=== PATIENT | male | born 1980 | race Caucasian/White ===

== ENCOUNTER 2024-01-25 08:42 | Outpatient (CLI) | payer BC, SELFPAY ==
--- NOTE | 2024-02-04 18:20 | WPDSLEEPSTUD ---
Sleep Study Date of Study: 01/25/24 Ordering Provider: Emilia Leigh MD Interpreting Physician: Jocelyn Boss MD Sleep Study Type: Polysomnogram Height: 1.83 m Weight: 86.183 kg Body Mass Index: 25.7 Neck Circumference (inches): 14.5 [place]: 14 Reason for Sleep Study Hypersomnolence Sleep History Stanley Schneider is a 43-year-old man with excessive daytime sleepiness. He occasionally awakens from sleep feeling short of breath. He rarely wakes at night with heartburn, belching or coughing.??He constantly snores, and constantly snores loudly enough that others complain. He occasionally has trouble sleeping when he has a cold. He rarely wakes up gasping for breath during the night. He frequently has breathing problems at night witnessed by others. He occasionally sweats excessively at night. He rarely notices his heart pounding or beating irregularly during the night. He rarely falls asleep during the day. He frequently falls asleep involuntarily, occasionally falls asleep while driving. He never experiences loss of muscle tone with strong emotion. He never has daytime difficulty at work due to excessive sleepiness, he is a mortgage dba manager. He never feels paralyzed on waking or falling asleep. He rarely experiences vivid dreams upon waking or falling asleep. He never feels afraid of going to sleep. He rarely has nightmares. He rarely recalls his dreams. He frequently has thoughts racing through his mind. He never feels sad or depressed. He rarely feels anxiety. He occasionally notices parts of his body jerk. He occasionally kicks during the night. He occasionally feels crawling or aching feelings in his legs. He occasionally feels leg pain at night. He rarely has morning jaw pain, occasionally grinds his teeth at night. He rarely feels bothered by pain during the day, rarely awakened by pain during the night. He frequently wakes up feeling stiff in the morning, and he wakes feeling sore or achy. He occasionally awakens with pain in his neck, spine, or joints. Normal bedtime is between 10:30 p.m. and 11:00 p.m., falling asleep within 10 minutes to 15 minutes, waking 5-6 times at night, checking the clock while awake. He stays awake a few minutes before returning to sleep. His normal wake time is 5:25 a.m.. On weekends, bedtime is also between 10:30 p.m. and 11:00 p.m., and he wakes by 7:00 a.m.. He does not take naps in the afternoon or evening. A short nap lasting 10-15 minutes is not refreshing. He is usually drowsy for an hour after waking. He feels better in the afternoon compared to other times of day. Habits:??Tobacco: Never smoker Caffeine: 2-3 cups of coffee per day Alcohol: Once or twice a week Recreational substances: none PMFSH Past Medical History Medical History (Updated 02/06/24 @ 14:16 by Jocelyn Boss MD) GERD without esophagitis Seasonal allergies Surgical History Surgical History History of placement of ear tubes (~1982) History of tonsillectomy (~1983) Family History Family History Grandparent , 72 age of Heart disease Carcinoma of colon Social History Social History Smoking status: Never smoker Alcohol intake: current Substance use: never Lack of Transportation: No Lack of Food: Never True Current Housing: I Have Housing Concerned About Future Housing: No Difficulty Paying Gas/Electric Bills: No Difficulty Paying for Meds: No Currently Unemployed: No Education: Bachelor's Degree Difficulty w/ Childcare or Family Care: No Living arrangements: with family Occupation/Education: occupation Gender identity (if verbalized by the patient): Male Sexual Orientation (if Verbalized by the Patient): Straight or Heterosexual Spiritual care
[2024-02-06 14:39] VITALS: BMI 25.7
== END 2024-01-26 06:40 | disposition home or self-care (01) ==
LOC: ANHCSM 08:43
PROVIDERS: PCP Family Medicine; Visit Provider Family Medicine
DX: R40.0 Somnolence (principal); R29.818 Other symptoms and signs involving the nervous system
CPT/HCPCS: 95810

== ENCOUNTER 2024-05-02 01:04 | Day surgery (SDC) | payer BC, SELFPAY ==
[2024-04-16 09:06] VITALS: BMI 25.8
[2024-05-02 06:20] VITALS: BP 118/79; PULSE 93; RESP 18; TEMP 36.1; O2SAT 100; BMI 26.2
[2024-05-02] MEDS: LACTATED RINGERS 1,000 ML 150 ML IV CONT (06:28)
--- NOTE | 2024-05-02 07:24 | PM.IMHP ---
H&P: HPI History of Present Illness Date/Time: 05/02/24 07:24 Chief Complaint: Screening for colorectal cancer Narrative: this is a 44-year-old man who presents for his 1st colonoscopy. He denies any first-degree relatives with history of colon cancer but does have a grandfather that had colon cancer. He denies any hematochezia or melena. He denies any prior history of abdominal surgeries. Review of Systems Review of Systems: All systems reviewed & are unremarkable except as noted in HPI and below Constitutional: Constitutional: Denies chills, Denies fever(s), Denies headache(s) and Denies weight loss Eyes: Eyes: Denies change in vision ENT: Denies dizziness, Denies headache(s), Denies neck mass and Denies throat swelling Cardiovascular: Cardiovascular: Denies chest pain, Denies lightheadedness and Denies dyspnea Respiratory: Respiratory: Denies cough, Denies dyspnea and Denies wheezing Gastrointestinal: Gastrointestinal: Denies abdominal pain, Denies change in bowel habits, Denies nausea and Denies vomiting Genitourinary: Genitourinary: Denies hematuria and Denies dysuria Musculoskeletal: Musculoskeletal: Reports as per HPI Integumentary/Breasts: Skin/Breast: Reports as per HPI Neurologic: Denies dizziness and Denies headache(s) Allergic/Immunologic: Allergic/Immunologic: Denies throat swelling and Denies wheezing [facility] Past Medical History Medical History (Updated 05/02/24 @ 07:25 by Baldev Smith DO) GERD without esophagitis Seasonal allergies Surgical History Surgical History History of placement of ear tubes (~1982) History of tonsillectomy (~1983) Family History Family History Grandparent , 72 age of Heart disease Carcinoma of colon Social History Social History Smoking status: Never smoker Alcohol intake: current Drinks per week: 1 Substance use: never Substance use type: does not use Lack of Transportation: No Lack of Food: Never True Current Housing: I Have Housing Concerned About Future Housing: No Difficulty Paying Gas/Electric Bills: No Difficulty Paying for Meds: No Currently Unemployed: No Education: Bachelor's Degree Difficulty w/ Childcare or Family Care: No Living arrangements: with family Occupation/Education: occupation Gender identity (if verbalized by the patient): Male Sexual Orientation (if Verbalized by the Patient): Straight or Heterosexual Spiritual care concerns: No Meds Home Medications and Allergies Home Medications Medication Instructions Recorded Confirmed Type loratadine 10 mg tablet (Claritin) 10 mg PO DAILY PRN allergic 10/12/22 05/02/24 History symptoms multivitamin 1 tablet PO DAILY 10/12/22 05/02/24 History Allergies Allergy/AdvReac Type Severity Reaction Status Date / Time No Known Allergies Allergy Verified 05/02/24 06:18 Vital Signs Vital Signs - 24 hr 05/02/24 06:20 Temperature 36.1 C L Pulse Rate 93 Respiratory Rate 18 Blood Pressure 118/79 Pulse Oximetry 100 Oxygen Delivery Room Air Exam Const: General: no acute distress and alert Orientation/consciousness: patient oriented x3 HENMT: Head: normocephalic and atraumatic Ears: hearing grossly normal bilaterally Face/Nose/Sinus: Normal nares present Mouth: Yes Normal oral and palatal mucosa present Eyes: Periorbital: periorbital findings normal Sclera: sclerae normal EOM: EOMs intact bilaterally Neck: Neck: normal visual inspection, no lymphadenopathy and trachea midline Chest: Chest palpation & inspection: normal inspection of the chest Resp: Effort & Inspection: normal respiratory effort Auscultation: clear to auscultation bilaterally Cardio: Jugular venous distension: no JVD Rate: regular rate Rhythm: regular rhythm
--- NOTE | 2024-05-02 07:28 | P.PNAN_ITS ---
Anes - Initial Pre Proc Eval Procedure: Operation Date: 05/02/24 07:30 Proposed Procedures p Screening Colonoscopy - Baldev Smith DO Date/Time: 05/02/24 07:28 Surgeon: Baldev Smith DO Pre Op Diagnosis: Screening for malignant neoplasm of colon Patient Data Age: 44 Gender: M Height: 1.83 m Weight: 87.5 kg Last Vital Signs Temp 97.0 F L 05/02/24 06:20 Pulse 93 05/02/24 06:20 Resp 18 05/02/24 06:20 BP 118/79 05/02/24 06:20 Pulse Ox 100 05/02/24 06:20 O2 Del Method Room Air 05/02/24 06:20 Allergies Allergy/AdvReac Type Severity Reaction Status Date / Time No Known Allergies Allergy Verified 05/02/24 06:18 Home Medications Medication Instructions Recorded Confirmed Type loratadine 10 mg tablet (Claritin) 10 mg PO DAILY PRN allergic 10/12/22 05/02/24 History symptoms multivitamin 1 tablet PO DAILY 10/12/22 05/02/24 History Patient hx anesthesia problems: none Family hx anesthesia problems: none Results Review: All pre-operative results and documents have been reviewed as part of the pre- operative evaluation. [facility] Past Medical History Medical History (Updated 05/02/24 @ 07:25 by Baldev Smith DO) GERD without esophagitis Seasonal allergies Surgical History Surgical History History of placement of ear tubes (~1982) History of tonsillectomy (~1983) Family History Family History Grandparent , 72 age of Heart disease Carcinoma of colon Social History Social History Smoking status: Never smoker Alcohol intake: current Drinks per week: 1 Substance use: never Substance use type: does not use Lack of Transportation: No Lack of Food: Never True Current Housing: I Have Housing Concerned About Future Housing: No Difficulty Paying Gas/Electric Bills: No Difficulty Paying for Meds: No Currently Unemployed: No Education: Bachelor's Degree Difficulty w/ Childcare or Family Care: No Living arrangements: with family Occupation/Education: occupation Gender identity (if verbalized by the patient): Male Sexual Orientation (if Verbalized by the Patient): Straight or Heterosexual Spiritual care concerns: No Anes - Eval Final PreProcedure Day of Procedure 05/02/24 07:28 Patient weight: normal Heart: regular rate and rhythm Lungs: clear to auscultation Airway: Mallampati scale class II Neurological: alert and oriented Last oral intake: >/= 8 hours ASA classification: II Emergent: no Anesthetic plan: proceed Anesthesia type and monitoring: general GIVS and standard monitoring Results Review: All pre-operative results and documents have been reviewed as part of the pre- operative evaluation. Informed Consent: The patient's anesthetic plan and its attendant risks and benefits were discussed with the patient/family/POA. Questions were solicited and answers provided to the satisfaction of the patient/family/POA.
[2024-05-02 07:48] VITALS: BP 93/57; PULSE 70; RESP 15; O2SAT 100
[2024-05-02 07:58] VITALS: BP 94/52; PULSE 65; RESP 15; O2SAT 100
[2024-05-02 08:08] VITALS: BP 104/59; PULSE 66; RESP 17; O2SAT 100
== END 2024-05-02 08:19 | disposition home or self-care (01) ==
PROVIDERS: PCP Family Medicine; Visit Provider Surgery
PROC: 0DJD8ZZ Inspection of Lower Intestinal Tract, Via Natural or Artificial Opening Endoscopic (ICD-10-PCS; CPT 45378; principal; 2024-05-02 07:30)
DX: Z12.11 Encounter for screening for malignant neoplasm of colon (principal); K21.9 Gastro-esophageal reflux disease without esophagitis; Z98.890 Other specified postprocedural states; Z80.0 Family history of malignant neoplasm of digestive organs; Z82.49 Family history of ischemic heart disease and other diseases of the circulatory system
CPT/HCPCS: 45378; J2704; J7120